=== PATIENT | female | born 1935 | race Caucasian/White ===

== ENCOUNTER 2024-03-18 17:34 | Emergency (ER) | payer MEDICARE, SELFPAY ==
[2024-03-18 17:42] VITALS: BP 193/87; PULSE 54; TEMP 36.8; O2SAT 99; BMI 26.9
--- NOTE | 2024-03-18 17:47 | CT_ITS ---
The [address] [address] Patient Name: DEJON BEAVER MRN: [id number] date: 1935 Sex: F Assigned Patient Location: ER Current Patient Location: ER Accession/Order Number: [id number] Exam Date: 03/18/2024 18:02 Report Date: 03/18/2024 20:09 At the request of: JOSE DANIEL ORTIZ Procedure: CT head/brain wo con Exam: Radiographs: XR wrist RT min 3V, XR hand RT min 3V, XR knee RT 4V Reason for exam: fall Comparison: None CT/CT head/brain wo con IMPRESSION: Mild infrapatellar soft tissue swelling. Right total knee arthroplasty. Hardware is intact and appropriately positioned. Remainder of the right knee radiographs is unremarkable. Degenerative changes scattered throughout the right hand and wrist. Right hand and wrist radiographs are otherwise unremarkable. EXAM: Head and facial bones CTs performed without contrast. Dose reduction technique used: Automated exposure control and/or adjustment of the mA and/or kV according to patient size and/or use of iterative reconstruction technique. REASON FOR EXAM: fall COMPARISON: None FINDINGS: HEAD: No intracranial hemorrhage, mass effect, midline shift, fractures or evidence of acute ischemic infarct. No hydrocephalus. Mild generalized cerebral and cerebellar volume loss. Mild small vessel gliosis. FACIAL BONES: No acute facial bone or paranasal sinus fractures. Bilateral orbits are intact. No mandible fracture or dislocation. Bilateral globes are grossly intact. No orbital hematoma or inflammatory changes. Paranasal sinuses and mastoid air cells are clear. Mild bilateral temporomandibular joint degenerative change. Remainder unremarkable. IMPRESSION: No acute intracranial or maxillofacial abnormalities. Electronically authenticated by: ALMA WEBER Date: 03/18/2024 20:09
--- NOTE | 2024-03-18 17:47 | CT_ITS ---
[address] [address] Patient Name: DEJON BEAVER MRN: [id number] date: 1935 Sex: F Assigned Patient Location: ER Current Patient Location: [facility] Accession/Order Number: [id number] Exam Date: 03/18/2024 18:02 Report Date: 03/18/2024 19:36 At the request of: JOSE DANIEL ORTIZ Procedure: CT cervical spine wo con EXAM: CT cervical spine wo con HISTORY: Fall. TECHNIQUE: Axial CT scans through the cervical spine were obtained without contrast administration. Sagittal and coronal reconstruction images were obtained. Dose reduction techniques were achieved by using: automated exposure control and/or adjustment of mA and /or kV according to patient size and/or the use of an iterative reconstruction technique. COMPARISON: None. FINDINGS: No acute fracture or posttraumatic malalignment is shown. Decreased disc height and mild discovertebral complex at C6-C7 without central spinal stenosis. Moderate facet arthropathy from C3 to C6 on the left and from C2 to C6 on the right. No significant neural foraminal stenosis. The prevertebral soft tissue space appears normal. Visualized intracranial contents appear normal. The visualized neck shows no adenopathy. Visualized lung apices are clear. CT/CT cervical spine wo con IMPRESSION: No acute fracture or posttraumatic malalignment. Moderate facet arthropathy from C3 to C6 on the left and from C2 to C6 on the right. Electronically authenticated by: MARTIN BILL Date: 03/18/2024 19:36
--- NOTE | 2024-03-18 17:47 | CT_ITS ---
The [address] [address] Patient Name: DEJON BEAVER MRN: [id number] date: 1935 Sex: F Assigned Patient Location: ER Current Patient Location: ER Accession/Order Number: [id number] Exam Date: 03/18/2024 18:02 Report Date: 03/18/2024 20:09 At the request of: JOSE DANIEL ORTIZ Procedure: CT facial bones wo con Exam: Radiographs: XR wrist RT min 3V, XR hand RT min 3V, XR knee RT 4V Reason for exam: fall Comparison: None CT/CT facial bones wo con IMPRESSION: Mild infrapatellar soft tissue swelling. Right total knee arthroplasty. Hardware is intact and appropriately positioned. Remainder of the right knee radiographs is unremarkable. Degenerative changes scattered throughout the right hand and wrist. Right hand and wrist radiographs are otherwise unremarkable. EXAM: Head and facial bones CTs performed without contrast. Dose reduction technique used: Automated exposure control and/or adjustment of the mA and/or kV according to patient size and/or use of iterative reconstruction technique. REASON FOR EXAM: fall COMPARISON: None FINDINGS: HEAD: No intracranial hemorrhage, mass effect, midline shift, fractures or evidence of acute ischemic infarct. No hydrocephalus. Mild generalized cerebral and cerebellar volume loss. Mild small vessel gliosis. FACIAL BONES: No acute facial bone or paranasal sinus fractures. Bilateral orbits are intact. No mandible fracture or dislocation. Bilateral globes are grossly intact. No orbital hematoma or inflammatory changes. Paranasal sinuses and mastoid air cells are clear. Mild bilateral temporomandibular joint degenerative change. Remainder unremarkable. IMPRESSION: No acute intracranial or maxillofacial abnormalities. Electronically authenticated by: ALMA WEBER Date: 03/18/2024 20:09
--- NOTE | 2024-03-18 17:54 | ED_ITS ---
HPI HPI - Fall General Chief Complaint: Fall Stated Complaint: FALL @1430, FACIAL INJURY Time Seen by Provider: 03/18/24 17:47 Source: patient Mode of arrival: walk-in Limitations: no limitations History of Present Illness HPI Narrative: Patient is an 88-year-old female who presents to the emergency department for injuries after a fall. She states she tripped on a gap in the sidewalk several hours ago. She fell face forward. She sustained abrasions to the right upper eyelid, right maxilla and cheek. She complains of soreness generalized. She has some soreness and bruising to the right knee, she has had some swelling and bruising to the right hand and wrist. She states she has no significant pain at this time. She took ibuprofen prior to arrival. She is not on any blood thi nners. She states she is able to ambulate with no difficulty. Related Data Home Medications ?Medication ?Instructions ?Recorded ?Confirmed atenolol 50 mg tablet 50 mg PO DAILY 03/18/24 03/18/24 budesonide-formoterol HFA 80 2 inh inhalation BID 03/18/24 03/18/24 mcg-4.5 mcg/actuation aerosol inhaler (Symbicort) simvastatin 20 mg tablet 20 mg PO DAILY 03/18/24 03/18/24 spironolactone 50 mg tablet 50 mg PO DAILY 03/18/24 03/18/24 (Aldactone) Allergies Allergy/AdvReac Type Severity Reaction Status Date / Time No Known Drug Allergies Allergy Verified 03/18/24 17:42 Opioid HPI Opioid Management Most Recent Pain and Opioid Data: Last Pain Scale 4 03/18/24 18:38 03/18/24 Review of Systems ROS Constitutional Denies: fever or chills Ears, nose, mouth, and throat Denies: throat pain or nasal congestion Cardiovascular Denies: chest pain Respiratory Denies: shortness of breath or cough Gastrointestinal Denies: nausea or vomiting Musculoskeletal Reports: extremity pain and extremity swelling; Denies: back pain or neck pain Integumentary/Breast Denies: rash Neurological Denies: numbness in extremities or weakness in extremities Hematologic/Lymphatic Denies: easy bruising or easy bleeding Exam Narrative Exam Narrative: Gen.: Awake, alert, in no distress Head: Normocephalic ENT: Moist mucous membranes, no epistaxis or septal hematoma noted. Superficial abrasion noted to the right upper eyelid, right upper lip. No deep laceration or active bleeding. Mild swelling noted of the right cheek. No dental injury noted. Normal extraocular muscle motion. No orbital swelling noted. C-spine nontender with full range of motion Respiratory: No respiratory distress Extremities: Moves extremities equally, mild ecchymosis to the right anterior kn ee. No bony point tenderness or obvious deformity. Swelling and ecchymosis noted to the palm of the right hand and wrist with no bony point tenderness or obvious deformity. Psych: Normal mood and affect Neuro: No focal neuro deficit Skin: Warm, dry, intact Constitutional Vital Signs, click to edit/add: Last Vital Signs Temp 98.2 F 03/18/24 17:42 Pulse 50 L 03/18/24 20:10 Resp 12 03/18/24 20:10 BP 174/65 H 03/18/24 20:10 Pulse Ox 99 03/18/24 20:10 O2 Del Method Room Air 03/18/24 20:10 Course Vital Signs Vital signs: Vital Signs Temperature 98.2 F 03/18/24 17:42 Pulse Rate 54 L 03/18/24 17:42 Respiratory Rate 18 03/18/24 17:42 Blood Pressure 193/87 H 03/18/24 17:42 Pulse Oximetry 99 03/18/24 17:42 Oxygen Delivery Method Room Air 03/18/24 17:42 Temperature 98.2 F 03/18/24 17:42 Pulse Rate 50 L 03/18/24 20:10 Respiratory Rate 12 03/18/24 20:10 Blood Pressure 174/65 H 03/18/24 20:10 Pulse Oximetry 99 03/18/24 20:10 Oxygen Delivery Method Room Air 03/18/24 20:10 MDM - Fall MDM Narrative Medical decision making narrative: Patient any medication for pain, she is in no distress with a benign exam. She was sent for CTs of the head, C-spine and facial bones which were unremarkable and x-rays of the right hand, right wrist and right knee are also unremarkable with no evidence of acute fracture or dislocation. She was placed in an Christiano wrap of the right wrist. Rest, ice, elevate. Neurovascularly intact at discharge and return to the ER if symptoms change or worsen. SUPERVISED APC VISIT, PHYSICIAN ATTESTATION: Based on the medical record the care appears appropriate. ? Medical Records Attestation: I reviewed the patient's medical records. Discharge Plan Discharge Chief Complaint: Fall Clinical Impression: Fall, Closed head injury, Contusion of face, Contusion of right wrist, Contusion of right knee Patient Disposition: Home, Self-Care Time of Disposition Decision: 20:16 Condition: Good Prescriptions / Home Meds: No Action spironolactone [Aldactone] 50 mg tablet 50 mg PO DAILY atenolol 50 mg tablet 50 mg PO DAILY simvastatin 20 mg tablet 20 mg PO DAILY budesonide-formoterol [Symbicort] 80-4.5 mcg/actuation HFA aerosol inhaler 2 inh inhalation BID Print Language: Italian Instructions: Head Injury (ED), Contusion in Adults (ED) Referrals: DEJON PERAZA [Primary Care Provider] - 1 week Discharge Date/Time: 03/18/24 20:30
[2024-03-18 20:10] VITALS: BP 174/65; PULSE 50; O2SAT 99
== END 2024-03-18 20:30 | disposition home or self-care (01) ==
PROVIDERS: Emergency Provider Emergency Medicine; PCP Family Medicine
DX: S09.8XXA Other specified injuries of head, initial encounter (principal); S00.83XA Contusion of other part of head, initial encounter; S60.211A Contusion of right wrist, initial encounter; S80.01XA Contusion of right knee, initial encounter; W01.198A Fall on same level from slipping, tripping and stumbling with subsequent striking against other object, initial encounter
CPT/HCPCS: 70450; 70486; 72125; 73110; 73130; 73564; 99284